=== PATIENT | male | born 1935 | race Caucasian/White ===

== ENCOUNTER 2016-11-01 12:12 | Inpatient (IN) | payer OTHER ==
--- NOTE | ~2016-11-01 | HP ---
History And Physical [id number] [place]. [address] NAME: MINOR,ANAYELI LEWIS : 34 STATUS : ADM IN [facility]#: [id number] AGE: 81 ADM/REG DATE : 11/01/16 MR#: [id number] REPORT SERV DATE: 11/01/16 DICTATED BY: RODRI CORLEY DATE: 11/01/16 REPORT STATUS : Draft TRANSCRIBED BY: MODL DATE: 11/01/16 DATE OF ADMISSION: 11/01/2016 CHIEF COMPLAINT: Shortness of breath. HISTORY OF PRESENT ILLNESS: The patient is an 81-year-old male with past medical history of coronary artery disease with prior STEMI, tobacco use up to half pack per day for many years, quit approximately three weeks ago, who presents after having progressive shortness of breath and weakness. The patient reports that he has been having progressive weakness over the last few days, but today was probably the worst and most symptomatic. Symptoms have been [id number] and intermittent at times. No pain or radiating symptoms. He did have shortness of breath with mild cough. Does have weakness, but no fever, chills, or chest pain. Denies any gross swelling except for fluid in his lungs that he appreciates. Symptoms worsened by activity, relieved by rest, and no reproducing symptoms is appreciated. REVIEW OF SYSTEMS: 10-point review of systems is negative for that noted in the HPI. PAST MEDICAL HISTORY: Reflux; melanoma history, status post resection; coronary artery disease with STEMI in the past, taken care by Dr. Ramy CARIAS and Dr. Worthy. PRIOR SURGERIES: Right ear surgery. Otherwise declines any recent surgeries. FAMILY HISTORY: No coronary artery disease that the patient recalls, but does have a history of diabetes and hypertension. SOCIAL HISTORY: He was a prior smoker, has recently lost his . 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 PHYSICAL EXAMINATION: VITAL SIGNS: The patient's blood pressure 137/71, pulse 88 to 160, respirations 22 down to 16, and O2 saturations 95% on 4 L. GENERAL: Elderly with temporal wasting. EYES: No scleral icterus. EOMI. ENT: Nares patent. Mild JVD. Does have old surgical lesion on the ear. RESPIRATORY: Bibasilar rales. CHEST: Increased AP diameter. He does have mild end-expiratory wheeze. CARDIOVASCULAR: Irregularly irregular. Mild JVD. Bilateral rales. GASTROINTESTINAL: Soft, nontender, nondistended. Bowel sounds positive. GENITOURINARY: Deferred. MUSCULOSKELETAL: Moves all extremities x4. SKIN: Does have lesions on right anterior forearm and multiple areas of bruising. LYMPH: No cervical or supraclavicular lymphadenopathy grossly. HEMATOLOGIC: No gross bruising areas are right now. No acute bleeding areas. NEUROLOGIC: Alert and oriented. Moves all extremities, but very hard of hearing. PSYCH: Calm but slightly irritated not having hearing aids. History And Physical [address] [address] NAME: ANAYELI ELLISON : 34 STATUS : ADM IN [facility]#: [id number] AGE: 81 ADM/REG DATE : 11/01/16 MR#: [id number] REPORT SERV DATE: 11/01/16 DICTATED BY: RODRI CORLEY DATE: 11/01/16 REPORT STATUS : Draft TRANSCRIBED BY: XU DATE: 11/01/16 LABORATORY DATA: Urinalysis: Negative leukocyte esterase and nitrites. BNP elevated at 392.2. WBC 10.4, H and H are 11.9 and 34.8, platelets 223. INR 1.2. Sodium 143, potassium 2.8, calcium 8.8, magnesium 1.9. Troponin 0.04. BUN and creatinine are 21 and 0.88. Portable chest: Bilateral nodular densities could represent metastatic disease. PH 7.39, pCO2 of 41, pO2 of 98, of 24.2. ASSESSMENT AND PLAN: 1. Questionable new congestive heart failure. 2. Coronary artery disease. 3. Melanoma history. 4. Tobacco use history. 5. Difficulty hearing. 6. Mild protein calorie malnutrition. 7. Abnormal chest x-ray. 8. Hypokalemia. PLAN: 1. For questionable CHF and prior ejection fraction of 55%, we will check new echocardiogram with a history of coronary artery disease, tobacco use, quit approximately three weeks ago. He has had three prior stents. Chest x-ray: Positive volume but mild JVD. Clinically, he does have mildly increased volume in lungs, responding to diuresis and DuoNebs. Heart failure protocol initiated. 2. Coronary artery disease. Aspirin. We will start statin, beta hany, and ALEXIA inhibitor, has not been taking medications, although previously prescribed in prior discharge summaries. We will follow up with [facility] if any new acute findings. We will consult [facility]. The patient reports that he does have followup with [facility] in the near future, although this is not confirmed. 3. Melanoma history, surgery to the right ear, questionable right forearm lesion. We will need followup for this after acute setting completed. 4. Tobacco use history, quit three weeks ago. Nicotine patch available as needed. 5. Difficulty hearing as misplaces hearing aids. 6. Protein-calorie malnutrition. Ensure with meals. 7. Abnormal chest x-ray. Follow up a.m. The patient does have positive skin lesions and history of melanoma. [facility], but has not been currently following up. He was told, he was in remission. We will repeat chest x-ray and CT in a.m. to monitor clinical findings. May require additional surveillance followup as no prior chest x-rays acutely to compare. 8. Hypokalemia, replaced per protocol. Serial monitoring. Likely cause of additional weakness. Anticipate greater than two midnight inpatient stay. DDN/MODL History And Physical [address] [address] NAME: ANAYELI ELLISON : 34 STATUS : ADM IN [facility]#: [id number] AGE: 81 ADM/REG DATE : 11/01/16 MR#: [id number] REPORT SERV DATE: 11/01/16 DICTATED BY: RODRI CORLEY DATE: 11/01/16 REPORT STATUS : Draft TRANSCRIBED BY: MODL DATE: 11/01/16 Rodri Corley MD / [id number] CC: Rodri Corley MD
--- NOTE | ~2016-11-01 | CN ---
Consultation Report [facility] [address] [place]. [address] NAME: ANAYELI LEW : 34 STATUS : ADM IN [facility]#: [id number] AGE: 81 ADM/REG DATE : 11/01/16 MR#: [id number] REPORT SERV DATE: 11/03/16 DICTATED BY: DATE: REPORT STATUS : Draft TRANSCRIBED BY: MODL DATE: 11/03/16 DATE OF CONSULTATION: 11/03/2016 CHIEF COMPLAINT/REASON FOR CONSULTATION: New-onset congestive heart failure. HISTORY OF PRESENT ILLNESS: Mr. Lew is an 81-year-old gentleman, who is unable to give me a full history at this time. The patient thinks that he is in his own home instead of in the hospital. He believes his health services manager is his oxygen. He thinks it is 12 midnight instead of 12 in the afternoon. The majority of the history of present illness is taken from the history and physical as the patient is not able to give me a good history. He presented to the hospital on 11/01/2016 for progressive shortness of breath and weakness. At that time, he noted shortness of breath. He states that right now, he is not having any chest pain or shortness of breath. He denies dyspnea on exertion or lower extremity edema. He talks about his back pain, and he also talks about how he hurt his back caring for his ill who has since . MEDICATIONS: Current inpatient medications include: 1. Lasix 40 mg p.o. b.i.d., increased this morning. 2. Levaquin. 3. Aspirin 81 mg p.o. daily. 4. Atorvastatin 10 mg p.o. daily. 5. Coreg 3.125 mg p.o. b.i.d. 6. Enoxaparin for DVT prophylaxis. 7. Albuterol and ipratropium. 8. Lisinopril 5 mg p.o. daily. ALLERGIES: PENICILLIN. SOCIAL HISTORY: The patient is a smoker of unclear duration. It is my understanding that he quit smoking. The history and physical notes that he recently lost his . FAMILY HISTORY: Not significant for coronary artery disease. The patient states that he does not have any family in the area who help him make medical decisions. PAST MEDICAL HISTORY: 1. History of coronary artery disease, multi-vessel, status post PCI to the RCA performed 01/27/2010. 2. History of paroxysmal atrial fibrillation. 3. Hypertension. 4. Hyperlipidemia. 5. Skin cancer. REVIEW OF SYSTEMS: All system review attempted and is negative, except for as dictated in the HPI. Consultation Report [address] [place]. [address] NAME: ANAYELI LEW : 34 STATUS : ADM IN PAT#: [id number] AGE: 81 ADM/REG DATE : 11/01/16 MR#: [id number] REPORT SERV DATE: 11/03/16 DICTATED BY: DATE: REPORT STATUS : Draft TRANSCRIBED BY: MODL DATE: 11/03/16 PHYSICAL EXAMINATION: VITAL SIGNS: The patient is afebrile at 96, pulse ranges between 98 and 80 beats per minute, respirations 20, oxygen saturations on 4 L nasal cannula is decreased from 100% previously to 91 currently, blood pressure is 125/74. GENERAL: Mr. Lew is a cachectic, ill-appearing, delirious 81-year-old gentleman. He does not report distress, but lays his head back and closes his eyes during examination. NECK: I could not appreciate jugular venous distention. HEART: Regular rate and rhythm. I could not appreciate any murmurs, rubs, or gallops over lung sounds. LUNGS: There are coarse respiratory changes in all vasquez. Body habitus is cachectic. EXTREMITIES: Warm. There is no lower extremity edema. NEUROLOGIC: The patient appears delirious. He is able to follow commands. I could not appreciate focal neurologic deficits. MUSCULOSKELETAL: There is mild clubbing of the digits, DATA: A chest CT performed without contrast demonstrated COPD and that the right lower lobe airspace was consistent with pneumonia. There was extensive calcified atherosclerotic disease. Small bilateral kidney stones noted. LABORATORY RESULTS: Note a white blood cell count of 13.6, a hemoglobin of 12.3, a hematocrit of 36.2, a platelet count of 248. There is a left shift with an absolute neutrophil count of 11.4. Sodium 143, potassium 4, BUN 26, creatinine 1. An EKG performed on admission documented the previous inferior myocardial infarction. There is low voltage noted and nonspecific ST-T segment changes noted. Echocardiogram performed yesterday demonstrated moderate left ventricular systolic dysfunction with an ejection fraction of 35%, mild diastolic dysfunction, mild mitral regurgitation, and more inferior and inferolateral hypocontractility. IMPRESSION REPORT AND PLAN: 1. Acute delirium, suspect hypoxia. 2. Pneumonia. 3. Congestive heart failure of unknown duration. 4. Leukocytosis. 5. Malnutrition. 6. History of paroxysmal atrial fibrillation, not on anticoagulation due to back surgery. 7. Coronary artery disease, status post PCI to the RCA with known three-vessel disease documented on cardiac catheterization in 2009. 8. Tobacco abuse. RECOMMENDATIONS: 1. I believe that the patient is unable to consent for invasive evaluation at this time. 2. Would continue to treat his underlying pneumonia as you are doing. 3. I agree with fluid restriction. 4. Would arrange for sodium restriction. Consultation Report [address] [address] NAME: ANAYELI LEW : 34 STATUS : ADM IN [facility]#: [id number] AGE: 81 ADM/REG DATE : 11/01/16 MR#: [id number] REPORT SERV DATE: 11/03/16 DICTATED BY: DATE: REPORT STATUS : Draft TRANSCRIBED BY: MODL DATE: 11/03/16 5. Continue Lasix, lisinopril, Coreg, and aspirin unchanged at this time. 6. Add low-dose spironolactone. 7. Increase atorvastatin to 40 mg p.o. daily. 8. Would check ABG and evaluate for hypoxia. 9. Investigate delirium per [facility]. 10.I have discussed this with the hospitalist, Dr. Hampton via the telephone. 11.Additional recommendations pending clinical course. [facility] Lisbeth Calvert M.D. / [id number] CC: MD Danae Smith M.D.
--- NOTE | ~2016-11-01 | DS ---
Discharge Summary [address] [place]. [address] NAME: ANAYELI ELLISON : 33 STATUS : DIS IN PAT#: [id number] AGE: 81 ADM/REG DATE : 11/01/16 MR#: [id number] REPORT SERV DATE: 11/08/16 DICTATED BY: CHANDRA JORDAN DATE: 11/07/16 REPORT STATUS : Draft TRANSCRIBED BY: MODL DATE: 11/07/16 ADMISSION DATE: 11/01/2016 DISCHARGE DATE: 11/07/2016 DISCHARGE DIAGNOSES: 1. Acute new onset systolic congestive heart failure with ejection fraction of 35%. 2. Community-acquired pneumonia with sepsis. 3. Acute kidney injury, worsening. 4. Acute onset of severe encephalopathy during this hospital stay. 5. Continued smoking. 6. Hypoxic respiratory failure. CONSULTS: Cardiology. PROCEDURES: None. HOSPITAL COURSE: This is an 81-year-old gentleman who was admitted to the hospital with community-acquired pneumonia as well as new onset congestive heart failure. For details, please refer to excellent H and P dictated by Dr. Simon. In summary, the patient was admitted and was appropriately started on empiric antibiotic therapy as well as IV Lasix diuresis. The patient's echocardiogram showed a depressed new onset acute systolic congestive heart failure with ejection fraction of 35%. The patient was seen by Cardiology, who felt the patient needed cardiac cath. However, the patient developed acute onset of severe encephalopathy and in general it continued to deteriorate despite maximum medical efforts. Lengthy discussion was made with the family who decided that the patient will benefit most from hospice care. The patient and family have experienced with [facility] that they were very happy with and thus [facility] was involved. The patient is now being discharged to home with [facility]. DISPOSITION: Home. A total of 40 minutes spent in coordinating this patient's discharge today of which most of it was spent counseling the family. [facility]/XU Chandra Jordan MD / [id number] CC: MD Danae Smith M.D.
[2016-11-01 13:14] LABS: ALLENS TEST Pos; BE (BASE EXCESS) -0.6 MEQ/L (0 +/- 2.5); CARBOXYHEMOGLOBIN 1.4 % (0-3); DEVICE NC; HCO3 (ACTUAL BICARBONATE) 24.2 MEQ/L (23-27); HEMOBLOGIN CONTENT 12.4 G/DL (14-18); INSTRUMENT SERIAL # 8087; METHEMOGLOBIN 0.2 % (0-3); O2 CONTENT 16.8 VOL% (18-24); OPERATOR ID 32199; PCO2 (CO2 TENSION) 41 MMHG (35-45); PO2 (O2 TENSION) 98 MMHG (79-93); SAMPLE Arterial; pH 7.39 (7.37-7.43)
[2016-11-01 13:22] LABS: HEMATOCRIT 34.8 % (40.0-51.0); HEMOGLOBIN 11.9 g/dL (13.6-17.8); MANUAL DIFF YES %; MEAN CORPUS HGB CONC 34.2 g/dL (32.0-36.0); MEAN CORPUSCULAR HEMOGLOB 31.6 pg (26.0-34.0); MEAN CORPUSCULAR VOLUME 92.6 fL (80-100); MEAN PLATELET VOLUME 9.2 fL (9.2-13.0); PLATELET COUNT 223 10/3/uL (150-400); RBC DISTRIBUTION WIDTH 13.8 % (12.0-16.0); RED CELL COUNT 3.76 10/6/uL (4.7-6.1); WHITE BLOOD CELLS 10.4 10/3/uL (4.5-10.5)
[2016-11-01 13:31] LABS: INTERNATIONAL NORMAL RATI 1.2 UNITS (-); PROTIME (NOT ORD) 15.1 SEC (12.0-14.5)
[2016-11-01 13:32] LABS: PARTIAL THROMBO TIME 39.6 SEC (22.5-37.2)
[2016-11-01 13:38] LABS: BUN (BLOOD UREA NITROGEN) 21 MG/DL (6-23); CALCIUM, SERUM 8.8 MG/DL (8.5-10.4); CHEST PAIN PROFILE TAT 0 Hrs 20 Mins; CHLORIDE, SERUM 107 MMOL/L (96-112); CO2 (CARBON DIOXIDE) 26 MMOL/L (24-34); CREATININE 0.88 MG/DL (0.70-1.30); GFR AFRICAN AMERICAN 93 ML/MIN (>=60); GFR NON AFRICAN AMERICAN 80 ML/MIN (>=60); GLUCOSE, SERUM 100 MG/DL (60-99); POTASSIUM, SERUM 2.8 MMOL/L (3.5-5.3); SODIUM, SERUM 143 MMOL/L (135-148); TROPONIN I 0.04 NG/ML (<0.05)
[2016-11-01 13:43] LABS: BAND NEUTROPHILS 23 %; ER DIFF TAT 0 Hrs 25 Mins; LYMPHOCYTES 9 %; LYMPHOCYTES ABSOLUTE (CALC) 0.94 10/3/uL (0.67-4.30); MONOCYTES 4 %; MONOCYTES ABSOLUTE (CALC) 0.42 10/3/uL (0.21-1.20); NEUTROPHILS ABSOLUTE (CALC) 9.05 10/3/uL (2.02-8.40); PLATELET ESTIMATE ADQ (ADEQUATE); SEGMENTED NEUTROPHIL (0) 64 %; TOTAL NUCLEATED CELLS 100; TOXIC GRANULATION 1+
[2016-11-01 13:44] LABS: POLYCHROMASIA 1+ (2-5/OIF) (0-1/OIF)
[2016-11-01 14:37] LABS: ASCORBIC ACID (UR NOT ORDER) NEG (NEG); BILIRUBIN, URINE NEGATIVE (NEG); ER URINALYSIS TAT 0 Hrs 10 Mins; KETONE, URINE NEGATIVE (NEG); LEUKOCYTE ESTERASE(NOT OR NEG (NEG); NITRITE (URINE) NEG (NEG); WBC (NOT ORDERED) (RFLEX) 1 (0-5)
[2016-11-01] MEDS ORDERED: BAYER BACK AND BODY PO (15:03)
[2016-11-01] MEDS ORDERED: ASAB PO (15:03)
[2016-11-01] MEDS ORDERED: FISH-EPA1000 MG PO (15:04)
[2016-11-01 20:44] LABS: BUN (BLOOD UREA NITROGEN) 19 MG/DL (6-23); CALCIUM, SERUM 8.8 MG/DL (8.5-10.4); CHLORIDE, SERUM 103 MMOL/L (96-112); CO2 (CARBON DIOXIDE) 32 MMOL/L (24-34); CREATININE 0.99 MG/DL (0.70-1.30); GFR AFRICAN AMERICAN 82 ML/MIN (>=60); GFR NON AFRICAN AMERICAN 71 ML/MIN (>=60); GLUCOSE, SERUM 154 MG/DL (60-99); POTASSIUM, SERUM 3.5 MMOL/L (3.5-5.3); SODIUM, SERUM 142 MMOL/L (135-148); TROPONIN I 0.03 NG/ML (<0.05)
[2016-11-02 06:24] LABS: BASOPHILS 0.1 %; BASOPHILS ABSOLUTE 0.01 10/3/uL (0.0-0.16); EOSINOPHILS 0.2 %; EOSINOPHILS ABSOLUTE 0.02 10/3/uL (0.0-0.53); HEMATOCRIT 35.6 % (40.0-51.0); HEMOGLOBIN 12.3 g/dL (13.6-17.8); IMMATURE GRANULOCYTES 1.6 %; IMMATURE GRANULOCYTES ABSOLUTE 0.15 10/3/uL (0.0-0.11); LYMPHOCYTES 6.7 %; LYMPHOCYTES ABSOLUTE 0.63 10/3/uL (0.67-4.30); MEAN CORPUS HGB CONC 34.6 g/dL (32.0-36.0); MEAN CORPUSCULAR HEMOGLOB 31.9 pg (26.0-34.0); MEAN CORPUSCULAR VOLUME 92.5 fL (80-100); MEAN PLATELET VOLUME 9.5 fL (9.2-13.0); MONOCYTES 7.6 %; MONOCYTES ABSOLUTE 0.71 10/3/uL (0.21-1.20); NEUTROPHILS 83.8 %; NEUTROPHILS ABSOLUTE 7.85 10/3/uL (2.02-8.40); PLATELET COUNT 223 10/3/uL (150-400); RBC DISTRIBUTION WIDTH 13.9 % (12.0-16.0); RED CELL COUNT 3.85 10/6/uL (4.7-6.1); WHITE BLOOD CELLS 9.4 10/3/uL (4.5-10.5)
[2016-11-02 06:25] LABS: MANUAL DIFF NO %
[2016-11-02 06:39] LABS: BUN (BLOOD UREA NITROGEN) 19 MG/DL (6-23); CALCIUM, SERUM 8.8 MG/DL (8.5-10.4); CHLORIDE, SERUM 107 MMOL/L (96-112); CREATININE 0.88 MG/DL (0.70-1.30); GFR AFRICAN AMERICAN 93 ML/MIN (>=60); GFR NON AFRICAN AMERICAN 80 ML/MIN (>=60); POTASSIUM, SERUM 3.9 MMOL/L (3.5-5.3); SODIUM, SERUM 143 MMOL/L (135-148); TROPONIN I 0.02 NG/ML (<0.05)
[2016-11-02 06:42] LABS: CO2 (CARBON DIOXIDE) 26 MMOL/L (24-34); GLUCOSE, SERUM 111 MG/DL (60-99)
[2016-11-03 06:25] LABS: BASOPHILS 0.2 %; BASOPHILS ABSOLUTE 0.03 10/3/uL (0.0-0.16); EOSINOPHILS 0 %; HEMATOCRIT 36.2 % (40.0-51.0); HEMOGLOBIN 12.3 g/dL (13.6-17.8); IMMATURE GRANULOCYTES 1.2 %; IMMATURE GRANULOCYTES ABSOLUTE 0.16 10/3/uL (0.0-0.11); LYMPHOCYTES 5.4 %; LYMPHOCYTES ABSOLUTE 0.74 10/3/uL (0.67-4.30); MEAN CORPUSCULAR HEMOGLOB 31.5 pg (26.0-34.0); MEAN CORPUSCULAR VOLUME 92.6 fL (80-100); MEAN PLATELET VOLUME 9.9 fL (9.2-13.0); MONOCYTES 6.2 %; MONOCYTES ABSOLUTE 0.84 10/3/uL (0.21-1.20); NEUTROPHILS ABSOLUTE 11.84 10/3/uL (2.02-8.40); PLATELET COUNT 248 10/3/uL (150-400); RBC DISTRIBUTION WIDTH 13.9 % (12.0-16.0); RED CELL COUNT 3.91 10/6/uL (4.7-6.1)
[2016-11-03 06:28] LABS: MANUAL DIFF NO %; WHITE BLOOD CELLS 13.6 10/3/uL (4.5-10.5)
[2016-11-03 06:36] LABS: CALCIUM, SERUM 9.2 MG/DL (8.5-10.4); CHLORIDE, SERUM 102 MMOL/L (96-112); CREATININE 1.03 MG/DL (0.70-1.30); GFR AFRICAN AMERICAN 78 ML/MIN (>=60); GFR NON AFRICAN AMERICAN 67 ML/MIN (>=60); GLUCOSE, SERUM 105 MG/DL (60-99); SODIUM, SERUM 143 MMOL/L (135-148)
[2016-11-03 06:38] LABS: BUN (BLOOD UREA NITROGEN) 26 MG/DL (6-23); CO2 (CARBON DIOXIDE) 31 MMOL/L (24-34)
[2016-11-03 13:45] LABS: ALLENS TEST Pos; CARBOXYHEMOGLOBIN 0.1 % (0-3); HCO3 (ACTUAL BICARBONATE) 28.4 MEQ/L (23-27); HEMOBLOGIN CONTENT 12.8 G/DL (14-18); INSTRUMENT SERIAL # 35151; METHEMOGLOBIN 0.5 % (0-3); OPERATOR ID 31928; PCO2 (CO2 TENSION) 38 MMHG (35-45); PO2 (O2 TENSION) 75 MMHG (79-93); SAMPLE Arterial; pH 7.49 (7.37-7.43)
[2016-11-04 06:38] LABS: BASOPHILS 0.1 %; BASOPHILS ABSOLUTE 0.01 10/3/uL (0.0-0.16); EOSINOPHILS 0 %; HEMATOCRIT 35.7 % (40.0-51.0); IMMATURE GRANULOCYTES 1.7 %; LYMPHOCYTES 4.1 %; LYMPHOCYTES ABSOLUTE 0.71 10/3/uL (0.67-4.30); MEAN CORPUS HGB CONC 33.6 g/dL (32.0-36.0); MEAN CORPUSCULAR HEMOGLOB 30.9 pg (26.0-34.0); MEAN PLATELET VOLUME 9.8 fL (9.2-13.0); MONOCYTES 5.8 %; MONOCYTES ABSOLUTE 0.99 10/3/uL (0.21-1.20); NEUTROPHILS 88.3 %; PLATELET COUNT 262 10/3/uL (150-400); RBC DISTRIBUTION WIDTH 13.9 % (12.0-16.0); RED CELL COUNT 3.88 10/6/uL (4.7-6.1); WHITE BLOOD CELLS 17.2 10/3/uL (4.5-10.5)
[2016-11-04 06:42] LABS: MANUAL DIFF NO %
[2016-11-04 06:45] LABS: CALCIUM, SERUM 8.8 MG/DL (8.5-10.4); CHLORIDE, SERUM 99 MMOL/L (96-112); CO2 (CARBON DIOXIDE) 30 MMOL/L (24-34); GFR AFRICAN AMERICAN 50 ML/MIN (>=60); GFR NON AFRICAN AMERICAN 43 ML/MIN (>=60); GLUCOSE, SERUM 93 MG/DL (60-99); POTASSIUM, SERUM 3.4 MMOL/L (3.5-5.3); SODIUM, SERUM 142 MMOL/L (135-148)
[2016-11-04 06:49] LABS: BUN (BLOOD UREA NITROGEN) 38 MG/DL (6-23)
[2016-11-04 07:27] LABS: PROCALCITONIN 0.76 ng/mL (<0.5)
[2016-11-05 05:48] LABS: BASOPHILS 0.1 %; BASOPHILS ABSOLUTE 0.01 10/3/uL (0.0-0.16); EOSINOPHILS 0.1 %; EOSINOPHILS ABSOLUTE 0.01 10/3/uL (0.0-0.53); HEMATOCRIT 34.5 % (40.0-51.0); HEMOGLOBIN 11.8 g/dL (13.6-17.8); IMMATURE GRANULOCYTES 1.9 %; IMMATURE GRANULOCYTES ABSOLUTE 0.26 10/3/uL (0.0-0.11); LYMPHOCYTES 5.2 %; MEAN CORPUS HGB CONC 34.2 g/dL (32.0-36.0); MEAN CORPUSCULAR HEMOGLOB 31.5 pg (26.0-34.0); MEAN PLATELET VOLUME 9.5 fL (9.2-13.0); MONOCYTES 5.2 %; NEUTROPHILS 87.5 %; NEUTROPHILS ABSOLUTE 11.77 10/3/uL (2.02-8.40); PLATELET COUNT 246 10/3/uL (150-400); RBC DISTRIBUTION WIDTH 13.9 % (12.0-16.0); RED CELL COUNT 3.75 10/6/uL (4.7-6.1); WHITE BLOOD CELLS 13.5 10/3/uL (4.5-10.5)
[2016-11-05 05:53] LABS: MANUAL DIFF NO %
[2016-11-05 06:20] LABS: A/G RATIO 0.4 (0.7-1.9); ALBUMIN 1.9 G/DL (3.5-5.0); ALKALINE PHOSPHATASE 244 U/L (45-117); BUN (BLOOD UREA NITROGEN) 52 MG/DL (6-23); CALCIUM, SERUM 8.4 MG/DL (8.5-10.4); CHLORIDE, SERUM 99 MMOL/L (96-112); CO2 (CARBON DIOXIDE) 27 MMOL/L (24-34); CREATININE 2.07 MG/DL (0.70-1.30); FOLATE 18.1 NG/ML (>5.2); GFR AFRICAN AMERICAN 34 ML/MIN (>=60); GFR NON AFRICAN AMERICAN 29 ML/MIN (>=60); GLOBULIN 4.6 G/DL (2.5-4.1); GLUCOSE, SERUM 73 MG/DL (60-99); POTASSIUM, SERUM 3.2 MMOL/L (3.5-5.3); SGOT(AST) 18 U/L (5-40); SGPT(ALT) 20 U/L (5-65); SODIUM, SERUM 140 MMOL/L (135-148); TOTAL BILIRUBIN 0.6 MG/DL (0-1.2); TOTAL PROTEIN 6.5 G/DL (6.0-8.5)
[2016-11-06 08:50] LABS: BUN (BLOOD UREA NITROGEN) 69 MG/DL (6-23); CALCIUM, SERUM 8.5 MG/DL (8.5-10.4); CHLORIDE, SERUM 103 MMOL/L (96-112); CO2 (CARBON DIOXIDE) 26 MMOL/L (24-34); GFR AFRICAN AMERICAN 30 ML/MIN (>=60); GFR NON AFRICAN AMERICAN 25 ML/MIN (>=60); GLUCOSE, SERUM 98 MG/DL (60-99); POTASSIUM, SERUM 3.2 MMOL/L (3.5-5.3); SODIUM, SERUM 143 MMOL/L (135-148)
[2016-11-07 06:53] LABS: BUN (BLOOD UREA NITROGEN) 79 MG/DL (6-23); CALCIUM, SERUM 9.5 MG/DL (8.5-10.4); CHLORIDE, SERUM 105 MMOL/L (96-112); CO2 (CARBON DIOXIDE) 30 MMOL/L (24-34); CREATININE 1.99 MG/DL (0.70-1.30); GFR AFRICAN AMERICAN 35 ML/MIN (>=60); GFR NON AFRICAN AMERICAN 30 ML/MIN (>=60); GLUCOSE, SERUM 116 MG/DL (60-99); POTASSIUM, SERUM 3.9 MMOL/L (3.5-5.3); SODIUM, SERUM 145 MMOL/L (135-148)
== END 2016-11-07 12:32 | disposition hospice, home (50) | DRG 871 ==
LOC: ER 12:12 → 6NO 15:23
PROVIDERS: Emergency Medicine; Internal Medicine; Student in an Organized Health Care Education/Training Program
DX: A41.9 Sepsis, unspecified organism (principal); J18.9 Pneumonia, unspecified organism; G93.41 Metabolic encephalopathy; I50.21 Acute systolic (congestive) heart failure; E46 Unspecified protein-calorie malnutrition; F05 Delirium due to known physiological condition; I48.0 Paroxysmal atrial fibrillation; Z68.1 Body mass index [BMI] 19.9 or less, adult; N18.9 Chronic kidney disease, unspecified; I25.10 Atherosclerotic heart disease of native coronary artery without angina pectoris; I25.2 Old myocardial infarction; E87.6 Hypokalemia; F17.210 Nicotine dependence, cigarettes, uncomplicated; H91.93 Unspecified hearing loss, bilateral; Z85.820 Personal history of malignant melanoma of skin; Z95.5 Presence of coronary angioplasty implant and graft
CPT/HCPCS: 36600; 71010; 71250; 80048; 80053; 81001; 82140; 82607; 82746; 82805; 82962; 83735; 83880; 84145; 84443; 84484; 85025; 85610; 85730; 87449; 93005; 93306; 94640; 96365; 96375; 96376; 99285; A9270-GY; J0456; J1956; J2405; J3486